=== PATIENT | female | born 1980 | race Caucasian/White ===

== ENCOUNTER → 2020-08-14 08:00 | Outpatient (BNVA) | payer BC, SELFPAY | PROVIDERS: Visit Provider Physician Assistant | DX: Z76.89 Persons encountering health services in other specified circumstances (principal) ==

== ENCOUNTER → 2020-08-22 08:07 | Outpatient (BNVA) | payer BC, SELFPAY | PROVIDERS: Visit Provider Surgery | DX: Z76.89 Persons encountering health services in other specified circumstances (principal) ==

== ENCOUNTER 2020-08-26 06:47 | Day surgery (SDC) | payer BC, SELFPAY ==
--- NOTE | 2020-08-25 11:00 | P.CONAN_ITS ---
Documented by User: Katerina Rahman 08/25/20 11:01 HPI - Anesthesia Eval Consult details Narrative: 40yo F for Upper Endoscopy s/p gastric bypass 2017 REPLACED BY [facility] Past Medical History Medical History Anxiety Depression DJD (degenerative joint disease) Hypersomnolence Hypothyroidism Intestinal malabsorption Obesity PVC (premature ventricular contraction) Family History Family History Mother No problems noted. Father No problems noted. Sister No problems noted. Sister Diabetes Sister Hypertension Brother No problems noted. Surgical History Surgical History Hx of gastric bypass Hx of wisdom tooth extraction Social History Social History Alcohol intake: current Alcohol intake frequency: holidays/special occasions only Smoking Status: Former smoker Advance Directives: No Advance Directives Information Provided: Yes Meds Allergies Allergy/AdvReac Type Severity Reaction Status Date / Time No Known Allergies Allergy Verified 08/22/20 10:21 Home Medications Medication Instructions Recorded Confirmed Type albuterol sulfate 90 mcg/actuation 2 puff INHALATION Q6H PRN 08/22/20 08/22/20 History aerosol inhaler budesonide-formoterol HFA 80 2 puff INHALATION BID 08/22/20 08/22/20 History mcg-4.5 mcg/actuation aerosol inhaler bupropion HCl 75 mg tablet 150 mg PO BID 08/22/20 08/22/20 History buspirone 30 mg tablet 30 mg PO BID 08/22/20 08/22/20 History cholecalciferol (vitamin D3) 25 25 mcg PO DAILY 08/22/20 08/22/20 History mcg (1,000 unit) capsule iron,carbonyl 65 mg-vitamin C 125 1 tab PO DAILY 08/22/20 08/22/20 History mg tablet,delayed release levothyroxine 50 mcg capsule 50 mcg PO DAILY 08/22/20 08/22/20 History topiramate 50 mg tablet 50 mg PO BID 08/22/20 08/22/20 History venlafaxine 75 mg tablet 75 mg PO BID 08/22/20 08/22/20 History Exam Exam Date and Time: August 25, 2020 1100 Assessment and Plan Assessment Anesthesia Assessment: Chart Reviewed Documented by User: Esther Loyd 08/26/20 07:30 PMFSH Past Medical History Medical History Anxiety Depression DJD (degenerative joint disease) Hypersomnolence Hypothyroidism Intestinal malabsorption Obesity PVC (premature ventricular contraction) Family History Family History Mother No problems noted. Father No problems noted. Sister No problems noted. Sister Diabetes Sister Hypertension Brother No problems noted. Surgical History Surgical History Hx of gastric bypass Hx of wisdom tooth extraction Social History Social History Alcohol intake: current Alcohol intake frequency: holidays/special occasions only Smoking Status: Former smoker Advance Directives: No Advance Directives Information Provided: Yes Meds Allergies Allergy/AdvReac Type Severity Reaction Status Date / Time No Known Allergies Allergy Verified 08/22/20 10:21 Home Medications Medication Instructions Recorded Confirmed Type albuterol sulfate 90 mcg/actuation 2 puff INHALATION Q6H PRN 08/22/20 08/22/20 History aerosol inhaler budesonide-formoterol HFA 80 2 puff INHALATION BID 08/22/20 08/22/20 History mcg-4.5 mcg/actuation aerosol inhaler bupropion HCl 75 mg tablet 150 mg PO BID 08/22/20 08/22/20 History buspirone 30 mg tablet 30 mg PO BID 08/22/20 08/22/20 History cholecalciferol (vitamin D3) 25 25 mcg PO DAILY 08/22/20 08/22/20 History mcg (1,000 unit) capsule iron,carbonyl 65 mg-vitamin C 125 1 tab PO DAILY 08/22/20 08/22/20 History mg tablet,delayed release levothyroxine 50 mcg capsule 50 mcg PO DAILY 08/22/20 08/22/20 History topiramate 50 mg tablet 50 mg PO BID 08/22/20 08/22/20 History venlafaxine 75 mg tablet 75 mg PO BID 08/22/20 08/22/20 History Exam Height,Weight and Vital Signs: Vital Signs Temp Pulse Resp BP Pulse Ox 08/26/20 07:03 97.5 F 79 16 138/82 97 Pertinent Lab Results Pertinent Lab Results: Lab Results 08/26/20 Range/Units 07:00 Urine Test NEGATIVE (NEGATIVE) Airway Mallampati Class: II TM Dist: >3cm Neck ROM: Full (Left shoulder discomfort. S/p fall 2 days ago) Loose/Missing/Broken Teeth: Yes (Bottom left front) Heart: RRR Lungs: CTAB Assessment and Plan Assessment Anesthesia Assessment: Anesthesia Plan Discussed and Chart Reviewed Final Anesthetic Review NPO: Yes ASA Class: III Final Preanesthetic Review: No Changes in Pt Med Stat, Meds/Allgs Chart Reviewed, Consent Obtained/Reviewed and Anes Risks/Benef Reviewed Patient Risk: Intermediate Procedure Risk: Low Assessment/Block/Sedation in SS: Assess/Block/Sedation-SS Anesthetic Plan Anesthetic Plan: MAC: Disposition: Standard PACU
--- NOTE | 2020-08-25 14:55 | MHC.SHP ---
Pre-Procedural Eval Section A The patient is an INPATIENT: No The History & Physical has been completed within 30 days and I have reviewed it.: Yes Section B Chief Complaint: dysphagia Details of Present Illness: GERD Relevant Family History (Specify if Yes): No Relevant Social History: None Present Medications: see Short Stay Collaborative assessment Medical History: No relevant PMH History of Previous Operations: Relevant previous surgery/procedure and date(s) (gastric bypass) Allergies: Allergies Allergy/AdvReac Type Severity Reaction Status Date / Time No Known Allergies Allergy Verified 08/22/20 10:21 Review of Systems Sugical H&P ROS: Negative: Constitution, Cardiovascular, Respiratory, Neurological, Psychiatric, Hem-Onc, Allergic/Immunologic, Gastrointestinal, Genitourinary, Musculoskeletal, Integumentary, Endocrine and Eyes/Ears/Nose/Throat Exam Surgical H&P Exam: Normal: HEENT, Normal: Heart, Normal: Lungs, Normal: Extremities, Normal: Abdomen, Normal: Skin and Normal: Neurological Plan Diagnosis/Plan: Unchanged (EGD to assess GERD and gastric bypass anatomy) I have reviewed the history and physical and performed a pertinent physical examination on my patient. No changes have occurred unless specified.
[2020-08-26 06:53] VITALS: BMI 40.3
[2020-08-26 07:03] VITALS: BP 138/82; PULSE 79; RESP 16; TEMP 36.4; O2SAT 97
[2020-08-26 07:13] LABS: UPreg QC Valid YES; Urine Pregnancy NEGATIVE (NEGATIVE)
[2020-08-26 07:57] VITALS: BP 115/76; PULSE 73; RESP 12; TEMP 36.1; O2SAT 97
--- NOTE | 2020-08-26 07:59 | PM.OP ---
Brief Operative Note Date of Service: 08/26/20 Pre-op diagnosis: GERD, s/p gastric bypass Post-op diagnosis: same (Redundant gastric pouch) Procedure: PROCEDURE DATE: 09/20/2019 PREOPERATIVE DIAGNOSIS: GERD, s/p gastric bypass POSTOPERATIVE DIAGNOSIS: Same as above. 1) Redundant gastric pouch, PROCEDURE: [id number] with biopsies Surgeon: Rajesh Ma M.D.. Ph.D. [employer] Consultant: None Anesthesia: IV sedation Estimated blood loss: Minimal FINDINGS AND PROCEDURE: OPERATIVE INDICATIONS: The patient is a 40 year old female known to me who underwent a laparoscopic gastric bypass elsewhere. The patient had inadequate weight loss so far and has GERD. Based on this information I recommended an upper endoscopy to evaluate the patient's symptoms. Risks and complications of the surgery were discussed with the patient in advance particularly the possibility of perforation or bleeding that may require surgical intervention. The patient understood the risks and was in agreement with the plan. PROCEDURE: After informed consent was obtained by the patient, the patient was transferred to the Operating Room and was placed in the supine position. After successful induction of IV sedation, a mouth block was placed and the patient was placed in the left lateral decubitus position. An upper endoscopy was performed next, the oropharynx and esophagus appeared within the normal limits. There was no hiatal hernia. The z-line was smooth and it was at 39cm from incisors. Two biopsies were obtained from the distal esophagus 2-3 cm proximal to the GE junction and two biopsies from the GE junction. The small pouch was entered. There was moderate lateral redundancy. There was no gastritis and the gastrojejunostomy was patent. The gastro-jejunostomy was at 47cm from incisors. A biopsy was obtained from the gastric pouch. No significant bleeding was noted from any of the biopsy sites. There was no anastomotic ulcer. At that point the scope was advanced into the proximal small intestine (proximal Dania limb) which appeared to be normal as well. The Dania limb and the pouch were decompressed and the scope was withdrawn from the patient's mouth. The patient was awaken and was transferred in stable condition to the Recovery Room for further care. I was present and performed all steps of the procedure. There were no residents to assist with this case. Rajesh Ma M.D., Ph.D. Surgeon: Golden Ma MD Anesthesia: MAC Estimated blood loss (mL): 5 IV fluids (mL): 400 Urine output (mL): 0 (No Márquez to record) Pathology: other (1) GEJ x2, distal esophagus x2, gastric pouch x1) Condition: stable Disposition: PACU
[2020-08-26 08:12] VITALS: BP 121/79; PULSE 70; RESP 16; TEMP 36.7; O2SAT 96
--- NOTE | 2020-08-26 14:13 | HO.POSTANES ---
Post Anesthesia Evaluation Post Anesthesia Evaluation Vital Signs: Vital Signs Temp Pulse Resp BP Pulse Ox 08/26/20 08:12 98.0 F 70 16 121/79 96 08/26/20 07:57 97.0 F 73 12 115/76 97 08/26/20 07:03 97.5 F 79 16 138/82 97 Anesthesia: Monitored Mental Status: Awake Pain Control: Satisfactory Nausea/Vomiting: None Hydration: Adequate Anesthesia-Related Issues: No Anes. Related Issues
== END 2020-08-26 08:42 ==
LOC: HO.SSS 06:48
PROVIDERS: Nurse Practitioner; Visit Provider Surgery
PROC: 0DJ08ZZ Inspection of Upper Intestinal Tract, Via Natural or Artificial Opening Endoscopic (ICD-10-PCS; CPT 43235; principal; 2020-08-26 07:30)
DX: K21.9 Gastro-esophageal reflux disease without esophagitis (principal); K90.9 Intestinal malabsorption, unspecified; Z98.84 Bariatric surgery status; G47.10 Hypersomnia, unspecified; F32.9 Major depressive disorder, single episode, unspecified; I49.3 Ventricular premature depolarization; Z79.51 Long term (current) use of inhaled steroids; Z79.899 Other long term (current) drug therapy; Z87.891 Personal history of nicotine dependence
CPT/HCPCS: 43239; 81025; 88305; 88342

== ENCOUNTER → 2020-09-16 08:23 | Outpatient (REF) | payer BC, SELFPAY ==
--- NOTE | 2020-09-16 08:25 | FL_ITS ---
EXAMINATION: XR GI SERIES CLINICAL INFORMATION: Obesity. COMPARISON: None. TECHNIQUE: Routine upper GI air-contrast study was performed in upright and lying position. FINDINGS: KUB obtained prior to the exam reveals surgical ash and sutures in the left upper quadrant from previous gastric bypass surgery. There is an IUD in the pelvis. Bilateral short C7 cervical ribs are noted Following oral administration of thick barium and effervescent granules, there is normal propagation of bolus from the oral cavity through the pharynx and esophagus and into the stomach without any evidence of obstruction, narrowing or stricture. On placing patient supine lying, there is a small stomach following gastric bypass surgery with prompt propagation of bolus from the small stomach into the small bowel loop without any evidence of obstruction, narrowing or stricture. There is ghdsvmbw-[id number] gastroesophageal reflux seen into the upper esophagus in right and left decubitus views. The mucosal pattern of esophagus, stomach and the small bowel loops is normal. FLUOROSCOPY TIME: 1.4 minutes. DOSE AREA PRODUCT: 26.875 uGy-m2 (microgray-meter squared). IMAGES: 35. FL/FL upper GI series IMPRESSION: Gastric bypass changes are noted. There is spontaneous clearance of barium from the oral cavity through the small stomach into the duodenum without any evidence of obstruction. There is a large gastroesophageal reflux in the upper esophagus on right and left decubitus views.
--- NOTE | 2020-09-16 08:25 | US_ITS ---
EXAMINATION: US COMPLETE ABDOMEN WITH LIVER ELASTOGRAPHY CLINICAL INFORMATION: Obesity. COMPARISON: None. TECHNIQUE: Real-time imaging of the abdominal viscera. Noninvasive ultrasound liver fibrosis assessment is performed using Katharina ElastPQ point quantification shear wave elastography (pSWE) with a 5 MHz transducer. Multiple elastography samples are obtained. FINDINGS: PANCREAS: The visualized pancreatic head and body are normal in appearance. The tail of the pancreas is obscured from visualization by the overlying bowel gas. ABDOMINAL AORTA: The proximal, middle, and distal aortic segments are normal in caliber. INFERIOR VENA CAVA: Visualized portions are normal. LIVER: The liver demonstrates normal size, contour and increased echogenicity. No focal lesion or intrahepatic biliary duct dilatation. The right lobe measures 16.3 cm in length. The left lobe measures 7.9 cm in length. There is normal hepatopedal flow seen in the main portal vein on Doppler exam. Shear wave elastography provides a median stiffness of 2.09 m/s (reference: normal median stiffness is 0.81 - 1.22 m/s). The IQR/median stiffness to assess sampling precision is 0.36 (reference: optimal IQR/median stiffness is under 0.3). GALLBLADDER: Normal. The gallbladder is physiologically distended without evidence of stones, sludge, polyps, wall thickening or pericholecystic fluid. COMMON BILE DUCT: Normal in caliber measuring 0.4 cm in diameter. RIGHT KIDNEY: Normal. No hydronephrosis. No renal calculi or focal parenchymal lesions. The kidney measures 11.4 cm in maximum dimension. LEFT KIDNEY: Normal. No hydronephrosis. No renal calculi or focal parenchymal lesions. The kidney measures 10.4 cm in maximum dimension. SPLEEN: Normal. The spleen measures 9.4 cm in maximum dimension. FREE FLUID: None. US/US abdomen comp w elastography IMPRESSION: 1. Diffuse hepatic steatosis. No focal lesion seen. 2. The rest of the abdominal ultrasound is unremarkable. 3. Elastography: Nsjbiled-[id number] fibrosis. However, the sampling was suboptimal.
--- NOTE | 2020-09-16 08:25 | XR_ITS ---
EXAMINATION: XR CHEST CLINICAL INFORMATION: Obesity. COMPARISON: None TECHNIQUE: 2 views of the chest were obtained. FINDINGS: No significant abnormality is noted involving the heart, lungs, mediastinum, bony thorax or soft tissues. XR/XR chest 2V IMPRESSION: Unremarkable chest examination.
--- NOTE | 2020-09-16 10:17 | ECG_ITS ---
Test Reason : CP Blood Pressure : / mmHG Vent. Rate : 077 BPM Atrial Rate : 077 BPM P-R Int : 132 ms QRS Dur : 074 ms QT Int : 370 ms P-R-T Axes : -25 007 004 degrees QTc Int : 418 ms Normal sinus rhythm Low voltage QRS Borderline ECG No previous ECGs available Referred By: Golden Ma Electronically Signed By:EMERITA COWAN MD
[2020-09-16 10:56] LABS: MANUAL DIFF FLAG NO
[2020-09-16 11:01] LABS: Basophils Percent Auto 0.5 % (0-2); Eosinophils Absolute Auto 0.1 X10*3/uL (0.0-0.4); Eosinophils Percent Auto 1.5 % (0-4); Hematocrit 40.7 % (37-47); Hemoglobin 13.9 g/dl (12.0-16.0); Imm Gran Abs Auto 0.01 X10*3/uL (0.00-0.03); Imm Gran Pct Auto 0.2 % (0.0-0.4); Lymphocytes Absolute Auto 1.8 X10*3/uL (1.2-4.9); Lymphocytes Percent Auto 27.1 % (20-40); Mean Corpuscular HGB Conc 34.2 g/dl (31.0-35.0); Mean Corpuscular Hemoglobin 29.9 pg (27.0-33.0); Mean Corpuscular Volume 87.5 fL (80-98); Mean Platelet Volume 9.3 fL (9.4-12.3); Monocytes Absolute Auto 0.4 X10*3/uL (0.1-1.2); Monocytes Percent Auto 6.7 % (2-11); Neutrophils Absolute Auto 4.2 X10*3/uL (2.0-8.3); Platelet Count 296 X10*3/uL (160-400); Red Blood Count 4.65 X10*6/uL (4.20-5.50); Red Cell Distribution Width 12.5 % (11.0-16.0); White Blood Count 6.6 X10*3/uL (4.8-10.8)
[2020-09-16 11:09] LABS: Estimated Average Glucose 100 mg/dL; Hemoglobin A1c % 5.1 %
[2020-09-16 11:30] LABS: Alanine Aminotransferase 28 U/L (0-31); Albumin Level 4.3 g/dL (3.5-5.0); Alkaline Phosphatase 65 U/L (39-117); Anion Gap 13 (12-20); Aspartate Amino Transferase 17 U/L (5-31); Bilirubin Total 0.4 mg/dL (0.0-1.0); Blood Urea Nitrogen 25 mg/dL (9-16); C Reactive Protein 0.16 mg/dL (< or = 0.50); Carbon Dioxide 22 mmol/L (22-29); Chloride 110 mmol/L (96-108); Cholesterol 201 mg/dL; Estimated Glomerular Filt Rate > 60; Glucose Random 80 mg/dL (60-115); HDL Cholesterol 47 mg/dL; LDL Cholesterol Calculated 144 mg/dl; Potassium 4.1 mmol/l (3.3-5.1); Sodium 141 mmol/L (135-145); Total Protein 6.9 g/dL (6.5-8.0); Triglycerides 50 mg/dL
[2020-09-16 11:52] LABS: Ferritin 11 ng/mL (10-250); Vitamin D 25-OH Total 24.5 ng/mL (>30)
[2020-09-16 12:23] LABS: Folate 15.6 ng/mL (> or = 4.0); Vitamin B12 187 pg/mL (200-900)
[2020-09-17 16:58] LABS: Calcium (PTHI) 9.2 mg/dL (8.6-10.2); PTHI 58 pg/mL (14-64)
[2020-09-17 18:07] LABS: Insulin Level Total 5.7 uIU/mL
[2020-09-18 23:43] LABS: Zinc 73 mcg/dL (60-130)
[2020-09-19 21:58] LABS: Vitamin A 56 mcg/dL (38-98)
[2020-09-24 13:06] LABS: Vitamin B1 8 nmol/L (8-30)
== END ==
LOC: HO.SL 08:23
PROVIDERS: Visit Provider Surgery
DX: Z01.818 Encounter for other preprocedural examination (principal); E66.01 Morbid (severe) obesity due to excess calories; Z68.39 Body mass index [BMI] 39.0-39.9, adult; E03.9 Hypothyroidism, unspecified; I49.3 Ventricular premature depolarization; K21.9 Gastro-esophageal reflux disease without esophagitis; G47.19 Other hypersomnia; R06.83 Snoring
CPT/HCPCS: 36415; 71046; 74240; 76705; 76981; 80053; 80061; 82306; 82607; 82728; 82746; 83036; 83525; 83970; 84425; 84443; 84590; 84630; 85025; 86140; 93005; 95806

== ENCOUNTER → 2020-09-19 08:17 | Outpatient (BNVA) | payer BC, SELFPAY | PROVIDERS: Visit Provider Surgery | DX: Z76.89 Persons encountering health services in other specified circumstances (principal) ==

== ENCOUNTER → 2020-09-26 08:23 | Outpatient (BNVA) | payer BC, SELFPAY | PROVIDERS: PCP Nurse Practitioner Family; Visit Provider Dietitian, Registered ==

== ENCOUNTER → 2020-10-10 08:19 | Outpatient (BNVA) | payer BC, SELFPAY | PROVIDERS: PCP Nurse Practitioner Family; Visit Provider Surgery ==

== ENCOUNTER → 2020-10-21 13:58 | Outpatient (REF) | payer BC, SELFPAY ==
--- NOTE | 2020-10-21 14:07 | CA_ITS ---
Transthoracic Echocardiogram Patient (Last, First, Middle): Nayely Márquez, Gender: Female Date of : 1980 Age: 40 Procedure Date: 10/21/2020 Procedure Type: Transthoracic Echocardiogram Location: OP Height: 160.02 cm Weight: 99.34 kg BSA: 2.01 m2 Heart Rate: bpm BP: 100 / 74 mmHg Manager Php: ROGER Referring MD: Golden Ma MD Symptoms: R94.31 - Abnormal electrocardiogram [ECG] [EKG] Study Quality: Fair ECG Rhythm: Sinus Conclusions: - The left ventricular systolic function is normal. The visually estimated ejection fraction is between 55-60%. - No obvious valvular pathology seen on this study. Findings Left Ventricle Normal left ventricular cavity size. There is normal left ventricular wall thickness. The left ventricular systolic function is normal. The visually estimated ejection fraction is between 55-60%. There is no evidence of regional wall motion abnormalities. Diastolic function is normal for age. Right Ventricle Normal right ventricular cavity size and systolic function. Atria Both atria are normal in size. Aortic Valve There is a normal trileaflet aortic valve. There is no aortic valve stenosis. There is no aortic valve regurgitation. Mitral Valve The mitral valve appears normal. There is trace mitral valve regurgitation. There is no mitral valve stenosis. Pulmonic Valve The pulmonic valve was not well visualized. Tricuspid Valve Normal tricuspid valve structure. There is trace tricuspid valve regurgitation. The pulmonary artery systolic pressure is normal. Great Vessels The asc aorta and aortic arch are normal in size. Venous The inferior vena cava is normal in size and collapses greater than 50% with inspiration. Pericardium/Pleural There is no evidence of pericardial effusion. Prior Study Comparison No prior study available for comparison. Recommendations, Care & Conclusions No obvious valvular pathology seen on this study. Measurements M-Mode Liner Measurements Normals - Women/Men AOV Cusps: 2.00 1.5-2.6 cm/m2 2D Linear Measurements IVSd: 0.90 0.6-0.9/0.6-1.0 cm LVIDd: 4.39 3.9-5.3/4.2-5.9 cm LVIDd Index: 2.18 2.4-3.2/2.2-3.1 cm/m2 LVIDs: 2.97 2.0-3.6 cm LVPWd: 0.91 0.7-1.1 cm Ao Root: 2.60 2.1-3.5 cm LA Diam: 3.50 2.7-3.8/3.0-4.0 cm LAIDs Index: 1.74 1.5-2.3 cm/m2 LV Mass: 159.87 67-162/88-224 g LV Mass Index: 79.54 43-95/49-115 g/m2 LVOT Diam: 2.00 3.0+(-)1.3 cm 2D Systolic Function EF 4C: 56.00 >55% Mitral Valve MV Pk E: 0.66 MV PK A: 0.54 MV Decel Time: 208.00 E/A: 1.20 E'Lateral: 12.80 E'Medial: 7.62 E/E' Med: 8.70 E/E' Lat: 5.20 PHT: 61.00 MVA PHT: 3.61 Decel [place]: 3.18 Aortic Valve AoV Pk Vinay: 1.45 AoV Pk Grad: 8.00 LVOT LVOT Pk Vinay: 0.98 LVOT Mn Vinay: 0.64 LVOT VTI: 0.19 LVOT Pk Grad: 4.00 LVOT Mn Grad: 2.00 LVOT Diam: 2.00 LVOT Area: 3.14 Diastolic Function MV Pk E: 0.66 MV Pk A: 0.54 E/A: 1.20 E'Medial: 7.62 E/E' Med: 8.70 E' Laterial: 12.80 E/E' Lat: 5.20 Great Vessels Aorta Ao Root-2D: 2.60 2.0-3.7 cm Ao Asc: 2.70 2.1-3.4 cm Ao Arch: 2.40 Pulmonary Valve PV Pk Vinay: 1.14 Peak PV Grad: 5.00 Updated in Other Vendor System with Status of Final Jake Perry MD electronically signed on 10/21/2020 4:05:09 PM with status of Final
== END ==
LOC: HO.CARD 13:58
PROVIDERS: Visit Provider Surgery
DX: Z01.818 Encounter for other preprocedural examination (principal); I10 Essential (primary) hypertension
CPT/HCPCS: 93306

== ENCOUNTER → 2020-11-03 08:24 | Outpatient (BNVA) | payer BC, SELFPAY | PROVIDERS: PCP Nurse Practitioner Family; Visit Provider Surgery ==

== ENCOUNTER → 2020-12-01 07:29 | Outpatient (BNVA) | payer BC, SELFPAY | PROVIDERS: PCP Nurse Practitioner Family; Visit Provider Surgery ==

== ENCOUNTER → 2020-12-10 08:04 | Outpatient (BNVA) | payer BC, SELFPAY | PROVIDERS: PCP Nurse Practitioner Family; Visit Provider Surgery ==

== ENCOUNTER 2020-12-12 09:20 | Outpatient (REF) | payer BC, SELFPAY ==
[2020-12-12 10:16] LABS: MANUAL DIFF FLAG NO
[2020-12-12 10:26] LABS: Estimated Average Glucose 97 mg/dL
[2020-12-12 10:27] LABS: Prothrombin Time 11.8 SEC (10.8-13.0)
[2020-12-12 10:30] LABS: Partial Thromboplastin Time 36.2 SEC (24.1-38.0)
[2020-12-12 10:31] LABS: Basophils Percent Auto 0.7 % (0-2); Eosinophils Absolute Auto 0.1 X10*3/uL (0.0-0.4); Eosinophils Percent Auto 1.4 % (0-4); Hemoglobin 14.2 g/dl (12.0-16.0); Imm Gran Abs Auto 0.02 X10*3/uL (0.00-0.03); Imm Gran Pct Auto 0.3 % (0.0-0.4); Lymphocytes Absolute Auto 1.9 X10*3/uL (1.2-4.9); Lymphocytes Percent Auto 32.1 % (20-40); Mean Corpuscular HGB Conc 32.3 g/dl (31.0-35.0); Mean Corpuscular Hemoglobin 29.6 pg (27.0-33.0); Mean Corpuscular Volume 91.7 fL (80-98); Mean Platelet Volume 9.5 fL (9.4-12.3); Monocytes Absolute Auto 0.5 X10*3/uL (0.1-1.2); Monocytes Percent Auto 7.7 % (2-11); Neutrophils Absolute Auto 3.4 X10*3/uL (2.0-8.3); Neutrophils Percent Auto 57.8 % (45-73); Platelet Count 280 X10*3/uL (160-400); Red Cell Distribution Width 12.3 % (11.0-16.0); White Blood Count 5.9 X10*3/uL (4.8-10.8)
[2020-12-12 10:36] LABS: Alanine Aminotransferase 25 U/L (0-31); Albumin Level 4.2 g/dL (3.5-5.0); Alkaline Phosphatase 59 U/L (39-117); Anion Gap 11 (12-20); Aspartate Amino Transferase 18 U/L (5-31); Bilirubin Total 0.4 mg/dL (0.0-1.0); Blood Urea Nitrogen 16 mg/dL (9-16); C Reactive Protein 0.07 mg/dL (< or = 0.50); Calcium 9.1 mg/dL (8.4-10.2); Carbon Dioxide 27 mmol/L (22-29); Chloride 109 mmol/L (96-108); Cholesterol 218 mg/dL; Estimated Glomerular Filt Rate > 60; Glucose Random 80 mg/dL (60-115); HDL Cholesterol 53 mg/dL; LDL Cholesterol Calculated 151 mg/dl; Potassium 4.5 mmol/L (3.3-5.1); Sodium 142 mmol/L (135-145); Total Protein 6.7 g/dL (6.5-8.0); Triglycerides 71 mg/dL
[2020-12-12 10:56] LABS: TSH reflex Free T4 0.99 uIU/mL (0.32-4.0)
[2020-12-13 05:51] LABS: Insulin Level Total 6.5 uIU/mL
== END 2020-12-12 09:21 | disposition home or self-care (01) ==
LOC: HO.LAB 09:20
PROVIDERS: PCP Internal Medicine; Visit Provider Surgery
DX: E66.9 Obesity, unspecified (principal); E03.9 Hypothyroidism, unspecified; K90.9 Intestinal malabsorption, unspecified
CPT/HCPCS: 36415; 80053; 80061; 83036; 83525; 84443; 85025; 85610; 85730; 86140

== ENCOUNTER 2020-12-16 05:50 | Inpatient (IN) | payer BC, SELFPAY ==
[2020-12-10 10:39] VITALS: BMI 36.0
--- NOTE | 2020-12-14 13:25 | MHC.SHP ---
Pre-Procedural Eval Section A The patient is an INPATIENT: Yes The History & Physical has been completed within 30 days and I have reviewed it.: Yes Section B Chief Complaint: obesity Details of Present Illness: obesity Relevant Family History (Specify if Yes): No Relevant Social History: None Present Medications: see Short Stay Collaborative assessment Medical History: No relevant PMH History of Previous Operations: Relevant previous surgery/procedure and date(s) (Lap Dania-en-Y gastric bypass) Allergies: Allergies Allergy/AdvReac Type Severity Reaction Status Date / Time No Known Allergies Allergy Verified 12/10/20 08:38 Review of Systems Sugical H&P ROS: Negative: Constitution, Cardiovascular, Respiratory, Neurological, Psychiatric, Hem-Onc, Allergic/Immunologic, Gastrointestinal, Genitourinary, Musculoskeletal, Integumentary, Endocrine and Eyes/Ears/Nose/Throat Exam Surgical H&P Exam: Normal: HEENT, Normal: Heart, Normal: Lungs, Normal: Extremities, Normal: Abdomen, Normal: Skin and Normal: Neurological Plan Diagnosis/Plan: Unchanged I have reviewed the history and physical and performed a pertinent physical examination on my patient. No changes have occurred unless specified.
--- NOTE | 2020-12-15 09:46 | P.CONAN_ITS ---
Documented by User: Katerina Rahman 12/15/20 09:48 HPI - Anesthesia Eval Consult details Narrative: 40yo F for Gastric Bypass Revision to sleeve gastrectomy PMFSH Active Problems Active Problems: All Active Problems (Updated 12/10/20 @ 10:42 by Sowmya Abernathy) BMI 39.0-39.9,adult (Acute) BMI 38.0-38.9,adult (Acute) Vitamin D deficiency (Acute) Vitamin B12 deficiency (Acute) Abnormal EKG (Acute) BMI 37.0-37.9, adult (Acute) BMI 36.0-36.9,adult (Acute) Nausea (Acute) Hypersomnolence (Acute) Intestinal malabsorption (Acute) DJD (degenerative joint disease) (Acute) Anxiety (Acute) Depression (Acute) PVC (premature ventricular contraction) (Acute) Hypothyroidism (Acute) Obesity (Acute) Past Medical History Medical History (Updated 12/16/20 @ 10:12 by Esther Loyd) Anxiety Arthritis Asthma Depression DJD (degenerative joint disease) H/O sleep study Hypersomnolence Hypothyroidism Intestinal malabsorption Obesity PVC (premature ventricular contraction) Family History Family History Mother No problems noted. Father No problems noted. Sister No problems noted. Sister Diabetes Sister Hypertension Brother No problems noted. Surgical History Surgical History History of esophagogastroduodenoscopy (EGD) Hx of gastric bypass Hx of wisdom tooth extraction Social History Social History Are you a primary transitional care manager to a significant other at home: No Do you presently have visiting nurse or other home services: No Smoking Status: Former smoker Tobacco Type: Cigarette Smoking Quit Date: age 30 Use of substances other than those prescribed or required for medical reasons: No Have you been hit, kicked, punched, or otherwise hurt by someone within the past year? If so, by whom?: No Advance Directives Information Provided: No Recently lost weight without trying: No Meds Allergies Allergy/AdvReac Type Severity Reaction Status Date / Time No Known Allergies Allergy Verified 12/10/20 08:38 Home Medications Medication Instructions Recorded Confirmed Last Taken Type albuterol sulfate 90 mcg/actuation 2 puff INHALATION Q6H PRN 08/22/20 12/10/20 Unknown History aerosol inhaler budesonide-formoterol HFA 80 2 puff INHALATION BID 08/22/20 12/10/20 Unknown History mcg-4.5 mcg/actuation aerosol inhaler bupropion HCl 75 mg tablet 150 mg PO BID 08/22/20 12/10/20 Unknown History buspirone 30 mg tablet 30 mg PO BID 08/22/20 12/10/20 Unknown History iron,carbonyl 65 mg-vitamin C 125 1 tab PO DAILY 08/22/20 12/10/20 Unknown History mg tablet,delayed release levothyroxine 50 mcg capsule 50 mcg PO DAILY 08/22/20 12/10/20 Unknown History topiramate 50 mg tablet 50 mg PO BID 08/22/20 12/10/20 Unknown History venlafaxine 75 mg tablet 75 mg PO BID 08/22/20 12/10/20 Unknown History Exam Exam Date and Time: December 15, 2020 0946 Height,Weight and Vital Signs: Height 5 ft 4 in Weight 95.254 kg Pertinent Lab Results Pertinent Lab Results: Laboratory Tests 12/12/20 09:40 Blood Type O Positive Antibody Screen NEGATIVE Laboratory Tests 12/12/20 12/12/20 09:40 09:40 WBC 5.9 Hgb 14.2 Hct 44.0 Plt Count 280 Sodium 142 Potassium 4.5 Chloride 109 H Carbon Dioxide 27 BUN 16 Creatinine 0.97 Narrative Narrative: EKG 09/2020 Vent. Rate : 077 BPM Atrial Rate : 077 BPM P-R Int : 132 ms QRS Dur : 074 ms QT Int : 370 ms P-R-T Axes : -25 007 004 degrees QTc Int : 418 ms Normal sinus rhythm Low voltage QRS Borderline ECG No previous ECGs available Echo 10/2020 Conclusions: - The left ventricular systolic function is normal. The visually estimated ejection fraction is between 55-60%. - No obvious valvular pathology seen on this study. Assessment and Plan Assessment Anesthesia Assessment: Chart Reviewed Documented by User: Esther Loyd 12/16/20 10:22 [facility] Past Medical History Medical History (Updated 12/16/20 @ 10:12 by Esther Loyd) Anxiety Arthritis Asthma Depression DJD (degenerative joint disease) H/O sleep study Hypersomnolence Hypothyroidism Intestinal malabsorption Obesity PVC (premature ventricular contraction) Family History Family History Mother No problems noted. Father No problems noted. Sister No problems noted. Sister Diabetes Sister Hypertension Brother No problems noted. Family history of problems with anesthesia: No Surgical History Surgical History History of esophagogastroduodenoscopy (EGD) Hx of gastric bypass Hx of wisdom tooth extraction History of Problems with Anesthesia: No Social History Social History Are you a primary transitional care manager to a significant other at home: No Do you presently have visiting nurse or other home services: No Smoking Status: Former smoker Tobacco Type: Cigarette Smoking Quit Date: age 30 Use of substances other than those prescribed or required for medical reasons: No Have you been hit, kicked, punched, or otherwise hurt by someone within the past year? If so, by whom?: No Advance Directives Information Provided: No Recently lost weight without trying: No Meds Allergies Allergy/AdvReac Type Severity Reaction Status Date / Time No Known Allergies Allergy Verified 12/10/20 08:38 Home Medications Medication Instructions Recorded Confirmed Last Taken Type albuterol sulfate 90 mcg/actuation 2 puff INHALATION Q6H PRN 08/22/20 12/10/20 Unknown History aerosol inhaler budesonide-formoterol HFA 80 2 puff INHALATION BID 08/22/20 12/10/20 Unknown History mcg-4.5 mcg/actuation aerosol inhaler bupropion HCl 75 mg tablet 150 mg PO BID 08/22/20 12/10/20 Unknown History buspirone 30 mg tablet 30 mg PO BID 08/22/20 12/10/20 Unknown History iron,carbonyl 65 mg-vitamin C 125 1 tab PO DAILY 08/22/20 12/10/20 Unknown History mg tablet,delayed release levothyroxine 50 mcg capsule 50 mcg PO DAILY 08/22/20 12/10/20 Unknown History topiramate 50 mg tablet 50 mg PO BID 08/22/20 12/10/20 Unknown History venlafaxine 75 mg tablet 75 mg PO BID 08/22/20 12/10/20 Unknown History Exam Height,Weight and Vital Signs: Vital Signs Temp Pulse Resp BP Pulse Ox 12/16/20 09:31 98 F 88 18 113/69 99 Lab Results 12/12/20 12/16/20 12/16/20 Range/Units 09:40 09:30 09:30 Urine Test NEGATIVE (NEGATIVE) COVID-19 ([facility]) Negative (Negative) COVID-19 Clin Com See Note Blood Type O Positive Antibody Screen NEGATIVE Airway Mallampati Class: II TM Dist: >3cm Neck ROM: Full Heart: RRR Lungs: CTAB Assessment and Plan Assessment Anesthesia Assessment: Anesthesia Plan Discussed and Chart Reviewed Final Anesthetic Review NPO: Yes ASA Class: III Final Preanesthetic Review: No Changes in Pt Med Stat, Meds/Allgs Chart Reviewed, Consent Obtained/Reviewed and Anes Risks/Benef Reviewed Patient Risk: Intermediate Procedure Risk: Intermediate Assessment/Block/Sedation in SS: Assess/Block/Sedation-SS Anesthetic Plan Anesthetic Plan: GA Disposition: Standard PACU
[2020-12-16] VITALS (14 sets, daily range): BP systolic 103–126; BP diastolic 51–75; PULSE 87–119; RESP 14–20; TEMP 36.2–37.3; O2SAT 91–99
[2020-12-16] MEDS: Lactated Ringers 1,000 ML 100 ML IVCONT ×2 (09:54)
[2020-12-16 09:57] LABS: UPreg QC Valid YES; Urine Pregnancy NEGATIVE (NEGATIVE)
[2020-12-16 10:12] LABS: COVID-19 Test Negative (Negative); IDNOW Serial# 9DD0AD1C
--- NOTE | 2020-12-16 14:08 | P.DS_ITS ---
DS: Providers Provider Date of Service: 12/17/20 Date of admission: 12/16/20 05:50 Primary care physician: Amanda Sommers MD DS: Medications Discharge Medications Home Medications: Home Medications Medication Instructions Recorded Confirmed albuterol sulfate 90 mcg/actuation 2 puff INHALATION Q6H PRN 08/22/20 12/10/20 aerosol inhaler budesonide-formoterol HFA 80 2 puff INHALATION BID 08/22/20 12/10/20 mcg-4.5 mcg/actuation aerosol inhaler bupropion HCl 75 mg tablet 150 mg PO BID 08/22/20 12/10/20 buspirone 30 mg tablet 30 mg PO BID 08/22/20 12/10/20 iron,carbonyl 65 mg-vitamin C 125 1 tab PO DAILY 08/22/20 12/10/20 mg tablet,delayed release levothyroxine 50 mcg capsule 50 mcg PO DAILY 08/22/20 12/10/20 topiramate 50 mg tablet 50 mg PO BID 08/22/20 12/10/20 venlafaxine 75 mg tablet 75 mg PO BID 08/22/20 12/10/20 Previous Rx's Medication Instructions Recorded cholecalciferol (vitamin D3) 125 125 mcg PO DAILY #30 cap 09/22/20 mcg (5,000 unit) capsule mecobalamin (vitamin B12) 1,000 1,000 mcg SUBLINGUAL DAILY #30 tab 09/22/20 mcg disintegrating tablet,sublingual ondansetron HCl 4 mg tablet 4 mg PO Q12H #20 tab 12/10/20 pantoprazole 40 mg tablet,delayed 40 mg PO DAILY #30 tab 12/10/20 release sucralfate 100 mg/mL oral 10 ml PO BID #400 ml 12/10/20 suspension DS: Summary Time Spent with Patient Time attestation: ADMITTING DIAGNOSIS: morbid obesity, s/p Gastric Bypass, asthma, DJD, Hypothyroidism, PVC's, anxiety/depression, diaphragmatic hernia DISCHARGE DIAGNOSIS: same, s/p laparoscopic sleeve gastrectomy and repair of diaphragmatic hernia PAST SURGICAL HISTORY: Gastric Bypass PROCEDURE: upper endoscopy, laparoscopic sleeve gastrectomy and repair of hiatal hernia DISCHARGE SUMMARY: History of Present Illness: The patient is a 40 year-old woman s/p RNYGBP with a BMI of 39.6 kg/m2 and associated co-morbidities as described above. The patient had extensive work- up,lost 19.4 lbs preoperatively and was electively scheduled for laparoscopic, possible open sleeve gastrectomy. Risks and complications of the surgery were discussed with the patient in advance, particularly the possibility of , pulmonary embolism, anastomotic leak, bleeding, bowel injury, GERD, cardiac, renal or pulmonary complications. The patient understood all the risks and was in agreement with the surgical plan. Hospital Course: The patient underwent an uneventful laparoscopic sleeve gastrectomy and repair of hiatal hernia on the day of admission. Postoperatively, the patient was transferred to the surgical floor. The patient was on IV Acetaminophen and IV dilaudid for pain control. Patient was started on bariatric phase 1 diet POD #0. On postoperative day one, the patient was feeling well without nausea, vomiting, fevers, or tachycardia. The patient had some mild incisional pain. The abdomen was soft. On the morning of postoperative day one, the patient was continued on 1 ounce of water or ice every half hour. During the first day, the patient did fairly well, having some incisional pain, but able to ambulate adequately and to tolerate liquids well. Since the patient is doing well, we decided that the patient was ready to be discharged. The patient was given instructions to follow-up with me next week and to call my office for any fever over 101, persistent abdominal pain, nausea, vomiting, GERD, symptoms of DVT such as calf tenderness, or leg swelling, or pulmonary embolism such as chest pain or shortness of breath. The patient was also instructed to drink 40-60 ounces of liquids per day using the 1-ounce cups. The patient was given prescription for Tylenol for pain, Zofran prn for nausea, and pantoprazole and carafate. The patient was encouraged to ambulate and use the incentive spirometer. The patient was allowed to shower, but no baths, and encouraged to stay active at home. All of these instructions were given to the patient personally. All questions were answered and the patient understood all instructions, the instructions were also given to the patient in print. Total time spent providing and/or coordinating discharge services: 15 Discharge coordination time: Less than 30 minutes Physical Exam Vital Signs: Vital Signs: Last Vital Signs Temp 98 F 12/16/20 09:31 Pulse 88 12/16/20 09:31 Resp 18 12/16/20 09:31 BP 113/69 12/16/20 09:31 Pulse Ox 99 12/16/20 09:31 Body Mass Index 36.0 DS: Data Data Completed and Pending Pending studies at discharge: Pending at discharge 12/16/20 13:36 Surgical [PTH] Routine Labs on day of discharge: Laboratory Results - last 24 hr 12/16/20 12/16/20 09:30 09:30 Urine Test NEGATIVE COVID-19 ([facility]) Negative COVID-19 Clin Com See Note Discharge Plan Discharge Anticipated Discharge Date/Time: 12/17/20 14:00 Patient Disposition: Home, Self-Care Discharge Diagnosis: S/p sleeve gastrectomy and paraesophageal hernia repair after gastric bypass Referrals: Amanda Sommers MD [Primary Care Provider] - Discharge Medications: Continued topiramate 50 mg tablet 50 mg PO BID RF: 0 albuterol sulfate 90 mcg/actuation HFA aerosol inhaler 2 puff inhalation Q6H PRN (Reason: Shortness Of Breath) RF: 0 budesonide-formoterol [Symbicort] 80-4.5 mcg/actuation HFA aerosol inhaler 2 puff inhalation BID RF: 0 buspirone 30 mg tablet 30 mg PO BID RF: 0 levothyroxine 50 mcg capsule 50 mcg PO DAILY RF: 0 venlafaxine 75 mg tablet 75 mg PO BID RF: 0 bupropion HCl 75 mg tablet 150 mg PO BID RF: 0 pantoprazole 40 mg tablet,delayed release (DR/EC) 40 mg PO DAILY Qty: 30 RF: 2 sucralfate 100 mg/mL suspension 10 ml PO BID Qty: 400 RF: 2 ondansetron HCl [Zofran] 4 mg tablet 4 mg PO Q12H Qty: 20 RF: 0 Discontinued cholecalciferol (vitamin D3) 125 mcg (5,000 unit) capsule 125 mcg PO DAILY Qty: 30 RF: 2 mecobalamin (vitamin B12) 1,000 mcg tablet,disintegrating 1,000 mcg sublingual DAILY Qty: 30 RF: 2 Vitron-C 65 mg iron- 125 mg tablet,delayed release (DR/EC) 1 tab PO DAILY RF: 0 Discharge Orders: Discharge Order (Routine); Ordered 12/17/20 Ordered By: Golden Ma Diet: other Activity on Discharge: No heavy lifting Stand Alone Forms: Patient Portal Discharge page Activity Restrictions/Additional Instructions: No tub baths, sex or returning to work until discussed at first post op appointment. No exercise, alcohol, tobacco or illegal drug use. Continue to use incentive spirometer hourly while awake. Walk in home for 5- 10 minutes every 2 hours during the first week. Continue phase 1 diet today and start phase 2 diet tomorrow morning. Follow all instructions in the bariatric handbook and call with any questions. Care Plan Goals: weight loss Health Concerns: obesity Plan of Treatment: see discharge instructions Assessment: Pt was discharged home on POD #1, s/p sleeve gastrectomy after RNYGBP.
[2020-12-16] MEDS: Lactated Ringers 1,000 ML 125 ML IVCONT (15:11)
--- NOTE | 2020-12-16 15:30 | P.BOP_ITS ---
Brief Operative Note Date of Service: 12/16/20 Pre-op diagnosis: Severe obesity and comorbidities Post-op diagnosis: same (& diaphragmatic hernia and abdominal adhesiosn) Procedure: PROCEDURE: [id number], laparoscopic repair of incarcerated diaphragmatic hernia, laparoscopic lysis of adhesions and laparoscopic sleeve gastrectomy INDICATIONS: This is a 40 year-old female with a BMI of 39.6 kg/m2, history of failed gastric bypass surgery and associated comorbid conditions as described previously. Preoperative work-up was suggestive of a hiatal hernia and an inappropriately enlarged gastric pouch with significant lateral redundancy. After appropriate workup and a 20.2 lbs, or 8.75% TBWL preoperative weight loss was performed, the patient was electively scheduled for laparoscopic, possibly open sleeve gastrectomy of the gastric pouch. The risks and complications of the procedure were discussed with the patient in advance, particularly the possibility of ; pulmonary embolism; staple line leak; bleeding; GERD; cardiac, pulmonary, or renal complications; as well as long-term problems such as insufficient weight loss, vitamin deficiency, strictures, or ulcers. The patient understood all the risks, and was in agreement to proceed with surgery. DESCRIPTION OF PROCEDURE: After informed consent was obtained from the patient, the patient was given preoperative antibiotics, and was transferred to the operating room. After successful induction of general anesthesia, pneumatic compressive devices were placed on both lower extremities. An upper endoscopy was performed next. The oropharynx and esophagus appeared to be within normal limits. There was a diaphragmatic hernia present of moderate size consistent with the findings of the preoperative upper GI. The stomach was entered. Then after all fluid and air were suctioned and the stomach was fully decompressed, the scope was withdrawn and secured in the mid esophagus. The patient was then prepped and draped in the usual sterile manner, and abdominal access was established at the right upper quadrant with the Jaqui technique. A 12 mm blunt port was inserted, and the abdomen was insufflated with CO2 to a pressure of 15 mmHg. Under direct visualization, additional ports were placed, specifically two 5 mm Versi-step ports to the left upper quadrant, and a 5 mm Versi-Step port to the right upper quadrant. 1% lidocaine plan was used to infiltrate all port sites as well as all fascia defects. Following that, the patient was placed in a steep reverse Trendelenburg position. An additional 5 mm port was placed to the right flank for the Mediflex retractor that was used to retract the left lobe of the liver. There were no adhesions between the undersurface of the left lobe of the liver. The liver retractor was positioned to get exposure to the hiatal area. Some omental fat overlying the Dania limb was mobilized and the gastro- jejunostomy was identified. I continued by dissecting between the gastric remnant and the gastric pouch . There were some posterior short gastric vessels that were not previously divided. Those were clipped and divided with the Thunderbeat. Separation of the gastric pouch from the spleen was difficult because the resection line was not well seen and additionally it was not in the appropriate anatomical position. In contrast, the line of resection was aiming towards the upper pole of the spleen and as a result both the tip of the gastric pouch as well as the remnant were desnely adherent to the spleen. In addition, it was clear that as a result of the above there were several posterior short gastric vessels that were left at the side of the gastric pouch. Nevertheless, those were divided and that allowed exposure to the left marcela Once the gastric pouch was from the renant and the spleen, the gastro- esophageal fat pad was opened with the ultrasonic device (Thunderbeat, Olympus) and the anterior esophagus and hiatus were exposed. The angle of His was opened with the ultrasonic device the fundus of the stomach from any diaphragmatic and splenic attachments. Adhesiolysis took approximately 90 min to complete. There was an obvious significant-sized hiatal hernia. I continued dissecting along the hiatus toward the left marcela and the angle of His. I fully mobilized the fat pad that was incarcerated in the hernia. I then continued by dissecting even further into the posterior retro-esophageal space all the way to the angle of His. I continued to mobilize the esophagus into the mediastinum circumferentially. Both vagal nerves were seen and preserved. At that point, I was able to have at least 3 to 5 cm of esophagus into the abdomen. After I completely mobilized the esophagus from both the left and right marcela and I had a good mobilization of the esophagus circumferentially, I closed the hernia defect with three interrupted #0 Surgidac sutures using the Endo Stitch device, two of which were placed posterior and one anterior to the esophagus. There was significant redundancy of the stomach laterally and posteriorly. An endoscopy was then performed to make sure that the anatomy was clear and additionally there were no injuries from the extensive dissection. The endoscopy revealed no injuries, confirmed the significant lateral redundancy and showed no evidence of ischemia from the dissection. The scope was advanced into the Dania limb to serve as guide for the planned sleeve gastrectomy. The redundant stomach was then divided with one Endo GRAY-45 and one GRAY-60 articulating purple loads using the AEON stapler and loads. Every effort was made that the gastric sleeve had a tubular shape and an even caliber throughout. Once the sleeve resection was completed, the staple line of the gastric sleeve was reinforced with Hemoclips. The resected stomach was retrieved without difficulty from the Jaqui port. An upper endoscopy was performed. There was no narrowing at the GE junction. The scope was easily advanced all the way to the pylorus which was clearly visualized. There was no narrowing anywhere and the sleeve's caliber was even throughout. The sleeve's staple line was inspected and there was no evidence of ischemia, bleeding or dehiscence. At that point the gastroscope was withdrawn from the patient?s mouth while we were decompressing the bowel and the stomach from any remaining air. I inspected the sleeve was situating and it was situating well. There was no bleeding from the staple line, spleen, or short gastric vessels. The Mediflex retractor was removed, and the undersurface of the liver was inspected and there was no bleeding. The patient was placed in supine position. I closed the fascial defect of the 12 mm port site with a figure of eight #1 Polysorb suture. Then 100 cc 0.25 % Marcaine plain with 10 mg of Dexamethasone were used to infiltrate the fascial closure as well as all skin incisions. At this point, the abdomen was deflated, all ports were removed under direct vision, and no bleeding was noted from any of the port sites. The skin incisions were irrigated with saline and were closed with 4-0 absorbable monofilament sutures. Steri-Strips and OpSites were used to cover all incisions. The patient was extubated and was transferred in stable condition to the recovery room for further care. I was present and performed all gill parts of the procedure. Ms. Castillo was the program services assistant. There were no residents to assist with this case. Rajesh Ma MD, PhD, FACS Surgeon: Golden Ma MD Anesthesia: GETA, local and other (TAP block) Shellfish Bed Worker: Ann-Marie Castillo Estimated blood loss (mL): 10 IV fluids (mL): 3,000 Urine output (mL): 100 Pathology: other (Stomach) Condition: stable Disposition: PACU
[2020-12-16 15:40] LABS: Hematocrit 42.1 % (37-47); Hemoglobin 13.9 g/dl (12.0-16.0)
--- NOTE | 2020-12-16 15:42 | PM.PNGS ---
Subjective Subjective Date of Service: 12/17/20 Interval history: Patient has mild incisional pain but was able to ambulate and use the incentive spirometer. Physical Exam Vital Signs: Vital Signs: Last Vital Signs Temp 97.7 F 12/16/20 15:00 Pulse 104 H 12/16/20 15:00 Resp 16 12/16/20 15:00 BP 108/59 L 12/16/20 15:00 Pulse Ox 93 12/16/20 15:00 Body Mass Index 36.0 GI: Inspection: Yes normal to inspection and Yes incision (clean, dry and intact) Extrem: Right lower extremity: normal to inspection (no calf tenderness) Left lower extremity: normal to inspection (no calf tenderness) Progress Note: A&P Assessment and plan (1) Obesity: Status: Acute (2) Hypothyroidism: Problem details: Bety's Status: Acute (3) Depression: Status: Acute (4) Anxiety: Status: Acute (5) DJD (degenerative joint disease): Status: Acute (6) Intestinal malabsorption: Status: Acute (7) BMI 36.0-36.9,adult: Status: Acute (8) Asthma: Problem details: Seasonal. Inhaler prn Status: Acute (9) S/P laparoscopic sleeve gastrectomy: Status: Acute Assessment and Plan: 40 year old Female was admitted on 12/16/2020 with morbid obesity and comorbidities. Problem 1: s/p laparoscopic sleeve gastrectomy, repair of incarcerated diaphragmatic hernia, gastropexy and extensive lysis of adhesions Status: Doing well Plan: Check am labs, If OK, will begin phase 1 bariatric diet. (10) S/P gastric bypass: Status: Acute (11) Status post repair of paraesophageal diaphragmatic hernia: Status: Acute (12) Abdominal adhesions: Status: Acute (13) Diaphragmatic hernia: Status: Acute (14) GERD (gastroesophageal reflux disease): Status: Acute (15) Hypertriglyceridemia: Status: Acute (16) Liver fibrosis: Status: Acute (17) Steatosis, liver: Status: Acute Fall Risk Details Current Medications: Current Medications Generic Name Dose Route Start Last Admin Trade Name Freq PRN Reason Stop Dose Admin Fentanyl 25 mcg 12/16/20 10:23 Fentanyl Citrate/Pf 100 Mcg/2 Ml Vial IVPUSH Q5M PRN Pain, Moderate (Pain Scale 4-6 Hydromorphone HCl 0.25 mg 12/16/20 10:23 Hydromorphone Hcl 0.5 Mg/0.5 Ml Syringe IVPUSH Q5M PRN Pain, Severe (Pain Scale 7-10) Lactated Ringer's 1,000 mls @ 100 mls/hr 12/16/20 08:00 12/16/20 14:40 Lr IVCONT Infused .Q10H KITTY Infusion Lactated Ringer's 1,000 mls @ 100 mls/hr 12/16/20 09:00 12/16/20 15:11 Lr IVCONT Infused .Q10H KITTY Infusion Promethazine HCl 6.25 mg/ 50.25 mls @ 201 mls/hr 12/16/20 10:23 Sodium Chloride IV ONCE PRN Nausea and Vomiting Lactated Ringer's 1,000 mls @ 125 mls/hr 12/16/20 15:05 12/16/20 15:11 Lr IVCONT 125 mls/hr .Q8H KITTY Administration Ondansetron HCl 4 mg 12/16/20 10:23 Ondansetron Hcl 4 Mg/2 Ml Vial IVPUSH ONCE PRN Nausea and Vomiting Time Spent With Patient Time: Total time spent is greater than 50% in coordination of care (as documented) at patient's floor/unit and/or counseling patient: Time with patient: less than 15 minutes
[2020-12-16 16:03] LABS: Anion Gap 18 (12-20); Blood Urea Nitrogen 16 mg/dL (9-16); Calcium 8.4 mg/dL (8.4-10.2); Carbon Dioxide 18 mmol/L (22-29); Chloride 108 mmol/L (96-108); Creatinine Clr Calc Pharmacy 91.1; Estimated Glomerular Filt Rate > 60; Glucose Random 89 mg/dL (60-115); Potassium 5.5 mmol/L (3.3-5.1); Sodium 138 mmol/L (135-145)
--- NOTE | 2020-12-16 16:23 | PC.NURSE ---
Patient resting comfortably, skin warm and pink. O2 saturation remaining in low 90's, intermittently dropping to mid 80's. Patient encouraged to cough and deep breathe. Incentive spirometer used, inspired volume 2000. Patient coughed up small amount of pink tinged thin liquid. Lungs auscultated, rhonchi heard during expiration, clear inspiration. Dr. Arana paged and at bedside. Nebulizer to be administered as ordered. Per Dr. Arana, safe to transfer patient to floor after updraft done.
[2020-12-16] MEDS: Albuterol Sulfate (0.083%) 2.5 MG/3 ML VIAL.NEB INHALE (16:40)
[2020-12-16] MEDS: ceFAZolin Sodium/Dextrose,Iso 2 GM/50 ML PIGGYBACK IV (17:43)
[2020-12-16] MEDS: HYDROmorphone HCl 0.5 MG/0.5 ML SYRINGE 0.25 MG IVPUSH ×2 (17:43→23:36)
[2020-12-16] MEDS: Famotidine/PF 20 MG/2 ML VIAL IVPUSH ×2 (17:43→20:52)
[2020-12-16] MEDS: ondansetron HCL 4 MG/2 ML VIAL IVPUSH (17:43)
[2020-12-16] MEDS: Sodium Chloride 0.45 % 1,000 ML 125 ML IVCONT (17:44)
[2020-12-16] MEDS: 0.9 % Sodium Chloride Flush 3 ML SYRINGE IVFLUSH (20:52)
[2020-12-17] MEDS: ondansetron HCL 4 MG/2 ML VIAL IVPUSH ×2 (01:24→07:54)
[2020-12-17] MEDS: Sodium Chloride 0.45 % 1,000 ML 125 ML IVCONT ×2 (01:24→10:37)
[2020-12-17 04:00] VITALS: BP 105/51; PULSE 79; RESP 16; TEMP 36.5; O2SAT 97
[2020-12-17 04:46] LABS: MANUAL DIFF FLAG NO
[2020-12-17 04:51] LABS: Basophils Percent Auto 0.1 % (0-2); Hematocrit 37.5 % (37-47); Hemoglobin 12.4 g/dl (12.0-16.0); Imm Gran Abs Auto 0.04 X10*3/uL (0.00-0.03); Imm Gran Pct Auto 0.4 % (0.0-0.4); Lymphocytes Absolute Auto 1.4 X10*3/uL (1.2-4.9); Lymphocytes Percent Auto 12.4 % (20-40); Mean Corpuscular HGB Conc 33.1 g/dl (31.0-35.0); Mean Corpuscular Hemoglobin 30.5 pg (27.0-33.0); Mean Corpuscular Volume 92.4 fL (80-98); Mean Platelet Volume 9.5 fL (9.4-12.3); Monocytes Absolute Auto 0.8 X10*3/uL (0.1-1.2); Monocytes Percent Auto 7.2 % (2-11); Neutrophils Percent Auto 79.9 % (45-73); Platelet Count 226 X10*3/uL (160-400); Red Blood Count 4.06 X10*6/uL (4.20-5.50); Red Cell Distribution Width 12.3 % (11.0-16.0); White Blood Count 11.2 X10*3/uL (4.8-10.8)
[2020-12-17 05:31] LABS: Anion Gap 12 (12-20); Blood Urea Nitrogen 10 mg/dL (9-16); Calcium 8.1 mg/dL (8.4-10.2); Carbon Dioxide 17 mmol/L (22-29); Chloride 111 mmol/L (96-108); Creatinine Clr Calc Pharmacy 105.1; Estimated Glomerular Filt Rate > 60; Glucose Random 106 mg/dL (60-115); Potassium 4.3 mmol/L (3.3-5.1); Sodium 136 mmol/L (135-145)
[2020-12-17 07:44] VITALS: BP 114/58; PULSE 77; RESP 18; TEMP 37.3; O2SAT 98
[2020-12-17] MEDS: Levothyroxine Sodium 50 MCG TABLET PO (07:54)
[2020-12-17] MEDS: Famotidine/PF 20 MG/2 ML VIAL IVPUSH (07:54)
--- NOTE | 2020-12-17 08:42 | MHC.CM.PN ---
This assembly instructions writer meet with patient for initial visit. Patient is a pleasant 40 YOF, alert and oriented, able to answer questions appropriately. Reports she lives with other people and boyfriend. Reports feeling safe in the home. Does not have any services in the home @ present time. Her best friend will be staying with her this weekend to help her in recovery. She reports not needing any additional services @ discharge. She reports having her friend providing transportation this afternoon @ discharge. Case Management plan: Home with no services, friend to transport home. Will monitor for and changes in condition.
[2020-12-17] MEDS: buPROPion HCL 75 MG TABLET 150 MG PO (08:50)
[2020-12-17] MEDS: Venlafaxine HCL 25 MG TABLET 75 MG PO (08:50)
[2020-12-17] MEDS: busPIRone HCl 10 MG TABLET 30 MG PO (08:50)
[2020-12-17 11:38] VITALS: BP 129/86; PULSE 100; RESP 18; TEMP 36.4; O2SAT 99
--- NOTE | 2020-12-17 15:13 | HO.POSTANES ---
Post Anesthesia Evaluation Post Anesthesia Evaluation Vital Signs: Vital Signs Temp Pulse Resp BP Pulse Ox 12/17/20 11:38 97.6 F 100 18 129/86 99 12/17/20 07:44 99.2 F 77 18 114/58 L 98 12/17/20 04:00 97.7 F 79 16 105/51 L 97 Anesthesia: General Endotracheal-GETA Mental Status: Awake Pain Control: Satisfactory Nausea/Vomiting: None Hydration: Adequate Anesthesia-Related Issues: No Anes. Related Issues
== END 2020-12-17 17:08 | disposition home or self-care (01) | DRG 403 ==
LOC: HO.SSSA 14:08 → HO.S3 14:51
PROVIDERS: Anesthesiology; Physician Assistant; Admitting Provider Surgery; PCP Internal Medicine; Visit Provider Surgery
PROC: 0DQ64ZZ Repair Stomach, Percutaneous Endoscopic Approach (ICD-10-PCS; CPT 43771; principal; 2020-12-16 10:30)
DX: E66.01 Morbid (severe) obesity due to excess calories (principal); K44.0 Diaphragmatic hernia with obstruction, without gangrene; J45.909 Unspecified asthma, uncomplicated; K66.0 Peritoneal adhesions (postprocedural) (postinfection); E03.9 Hypothyroidism, unspecified; Z68.39 Body mass index [BMI] 39.0-39.9, adult; Z20.822 Contact with and (suspected) exposure to COVID-19; Z98.84 Bariatric surgery status; Z79.890 Hormone replacement therapy; Z79.899 Other long term (current) drug therapy
CPT/HCPCS: 36415; 80048; 81025; 85014; 85018; 85025; 86850; 86900; 87635; 88307; 88342; 94640; 99024; J0131; J0690; J1100; J1170; J2250; J2370; J2405; J3010

== ENCOUNTER → 2020-12-24 08:27 | Outpatient (BNVA) | payer BC, SELFPAY | PROVIDERS: PCP Internal Medicine; Visit Provider Surgery ==

== ENCOUNTER → 2021-01-23 07:59 | Outpatient (BNVA) | payer BC, SELFPAY | PROVIDERS: PCP Internal Medicine; Visit Provider Surgery ==

== ENCOUNTER → 2021-03-11 07:26 | Outpatient (BNVA) | payer BC, SELFPAY | PROVIDERS: PCP Internal Medicine; Visit Provider Surgery ==

== ENCOUNTER → 2021-05-18 08:29 | Outpatient (BNVA) | payer BC, SELFPAY | PROVIDERS: PCP Internal Medicine; Visit Provider Physician Assistant Surgical ==

== ENCOUNTER → 2021-06-18 07:59 | Outpatient (BNVA) | payer BC, SELFPAY | PROVIDERS: PCP Internal Medicine; Visit Provider Physician Assistant Surgical ==

== ENCOUNTER → 2021-06-19 08:05 | Outpatient (BNVA) | payer BC, SELFPAY | PROVIDERS: PCP Internal Medicine; Visit Provider Physician Assistant Surgical ==